=== PATIENT | female | born 1965 | race Two or more races ===

== ENCOUNTER 2018-08-21 15:53 | Emergency (ER) | payer OTHER ==
[~2018-08-21] VITALS: Ht 170.2 cm; Wt 113.4 kg
[2018-08-21] MEDS ORDERED: LOSARTAN-HCTZ1 EACH (16:26)
== END 2018-08-21 19:28 | disposition home or self-care (01) ==
LOC: ER 15:53
DX: M54.5 Low back pain (principal)

== ENCOUNTER 2023-07-19 07:13 | Emergency (ER) | payer OTHER ==
[~2023-07-19] VITALS: Ht 170.2 cm; Wt 115.7 kg
[~2023-07-19 07:13] MED LIST: LOSARTAN-HCTZ1 EACH
[2023-07-19] MEDS ORDERED: SIMVASTATIN10 MG PO (07:38)
[2023-07-19] MEDS ORDERED: NORVASC2.5 M1 PO (07:38)
[2023-07-19] MEDS ORDERED: INDAPAMIDE2.5 MG PO (07:38)
== END 2023-07-19 16:32 | disposition home or self-care (01) ==
LOC: ER 07:13
DX: M51.16 Intervertebral disc disorders with radiculopathy, lumbar region (principal); I10 Essential (primary) hypertension

== ENCOUNTER 2023-07-28 15:42 | Emergency (ER) | payer OTHER ==
[~2023-07-28] VITALS: Ht 170.2 cm; Wt 113.4 kg
[~2023-07-28 15:42] MED LIST changes: +INDAPAMIDE2.5 MG PO; +NORVASC2.5 M1 PO; +SIMVASTATIN10 MG PO
== END 2023-07-28 18:08 | disposition home or self-care (01) ==
LOC: ER 15:43
DX: M54.9 Dorsalgia, unspecified (principal)